=== PATIENT | male | born 1970 | race Caucasian/White ===

== ENCOUNTER 2020-08-02 05:09 | Inpatient (IN) | payer OTHER, SELFPAY ==
--- NOTE | ~2020-08-02 | XR_ITS ---
EXAMINATION: XR hip RT 2V w AP pelvis, XR femur RT min 2V DATE: 08/04/2020 15:57 INDICATION: Right hip pain and inability to bear weight TECHNIQUE: 1. Anteroposterior view of the pelvis and anteroposterior and frog-leg lateral views of the right hip were obtained. 2. AP and lateral views of the right femur were obtained on overlapping proximal and distal images. COMPARISON: None. FINDINGS: Mixed subchondral lucency and sclerosis underlying the cephalad aspect of the right femoral head whic h appears flattened and fragmented suggesting advanced osteonecrosis. There is severe secondary osteo arthritis with remodeling of the right acetabulum. Together this results in mild cephalad and lateral migration of the right femoral head within the right acetabulum. Normal alignment and joint spaces a t the right knee on nonweightbearing imaging. No other fractures. Left hip and bilateral sacral fract ures spaces are normal. No right knee joint effusion. IMPRESSION: 1. Severe osteoarthritis at the right hip likely secondary to advanced osteonecrosis with fragmentati on and flattening of the cephalad aspect of the right femoral head. Reviewed, dictated and finalized at location H. OLEUM ANALYST IMPRESSION: 1. Severe osteoarthritis at the right hip likely secondary to advanced osteonec rosis with fragmentation and flattening of the cephalad aspect of the right fem oral head.
[2020-08-02 05:10] VITALS: BP 155/76; PULSE 104; RESP 18; TEMP 36.4; O2SAT 95
[2020-08-02 06:47] LABS: Basophils Percent Auto 0.4 % (0.2-1.2); Eosinophils Absolute Auto 0.1 K/mm3 (0-0.3); Eosinophils Percent Auto 1.4 % (0-4.4); Hemoglobin 12.8 g/dL (14.0-18.0); Immature Granulocyte Absolute 0.04 K/mm3 (0.00-0.031); Immature Granulocyte Percent A 0.4 % (0-0.5); Lymphocytes Absolute Auto 2.48 K/mm3 (0.9-3.2); Lymphocytes Percent Auto 26.5 % (18.3-44.2); Mean Corpuscular HGB Conc 33.7 g/dl (32-36); Mean Corpuscular Volume 100.8 fl (80-100); Mean Platelet Volume 9.1 fl (7.4-10.4); Monocytes Absolute Auto 0.9 K/mm3 (0.1-0.6); Monocytes Percent Auto 9.9 % (2.6-8.5); Neutrophils Absolute Auto 5.8 K/mm3 (1.3-6.7); Neutrophils Percent Auto 61.4 % (45.5-73.1); Platelet Count Result 300 k/mm3 (150-375); Red Blood Count 3.77 M/mm3 (4.6-6.20); Red Cell Distribution Width 15.9 % (11.5-14.5); White Blood Count 9.4 K/mm3 (4.5-10.0)
[2020-08-02 07:00] LABS: Ethanol 117 mg/dL (<10)
[2020-08-02 07:13] LABS: Alanine Aminotransferase 62 U/L (4-50); Albumin Level 4.2 g/dL (3.5-5.1); Alkaline Phosphatase 66 U/L (38-126); Anion Gap 14 mmol/L (8-16); Aspartate Amino Transferase 72 U/L (17-59); Bilirubin,Total 0.4 mg/dL (0.2-1.3); Blood Urea Nitrogen 18 mg/dL (9-20); Calcium 8.4 mg/dL (8.4-10.2); Carbon Dioxide 23 mmol/L (22-30); Chloride 104 mmol/L (98-107); Estimated CRCL calculation 131 ml/min; Estimated Glomerular Filt Rate > 60; Glucose 96 mg/dL (75-110); Potassium 4.2 mmol/L (3.4-5.0); Sodium 141 mmol/L (137-145)
--- NOTE | 2020-08-02 07:21 | PC.NURSE ---
Assumed care of pt, pt is resting on stretcher, lights dimmed. Sitter at bedside.
--- NOTE | 2020-08-02 07:34 | ED.GENADULT ---
HPI - General Adult General Chief complaint: Psychiatric Symptoms <Ines Boland MD - Last Filed: 08/04/20 07:14> Stated complaint: suicidal ideation <Ines Boland MD - Last Filed: 08/04/20 07:14> Time Seen by Provider: 08/02/20 05:51 <Ines Boland MD - Last Filed: 08/04/20 07:14> Source: patient <Ines Boland MD - Last Filed: 08/04/20 07:14> History of Present Illness HPI narrative: Patient is a 49 y/o male brought in by EMS for suicidal thoughts. He states that he has been depressed and feeling suicidal for last 3 days. He considered overdose. There is no alleviating or exacerbating factor. He admits that he has been drinking frequently. He denies any pain. He feels well physically. <Ines Boland MD - Last Filed: 08/04/20 07:14> Related Data Home medications: Home Medications Medication Instructions Recorded Confirmed buspirone 30 mg PO TID 08/03/20 08/04/20 gabapentin 600 mg PO TID 08/03/20 08/04/20 naproxen 500 mg PO BID PRN 08/03/20 08/04/20 nicotine 21 mg TRANSDERMAL DAILY 08/03/20 08/04/20 trazodone 50 mg PO HS 08/03/20 08/04/20 bupropion HCl 150 mg PO QAM 08/04/20 08/04/20 carbamazepine 200 mg PO BID 08/04/20 08/04/20 chlorpromazine [Thorazine] 50 mg PO TID 08/04/20 08/04/20 folic acid 1 mg PO QAM 08/04/20 08/04/20 meloxicam 15 mg PO QAM 08/04/20 08/04/20 <Ines Boland MD - Last Filed: 08/04/20 07:14> Allergies/adverse reactions: Allergies Allergy/AdvReac Type Severity Reaction Status Date / Time latex Allergy Rash Verified 08/03/20 22:10 Penicillins Allergy Hives Verified 08/03/20 22:11 risperidone [From Risperdal] Allergy Other Verified 08/03/20 22:11 tramadol Allergy Headache Verified 08/03/20 22:10 <Ines Boland MD - Last Filed: 08/04/20 07:14> Review of Systems Constitutional: Constitutional: Denies chills, Denies fever(s), Denies headache(s) and Denies weakness <Ines Boland MD - Last Filed: 08/04/20 07:14> Eyes: Eyes: Denies blurry vision <Ines Boland MD - Last Filed: 08/04/20 07:14> ENT: Denies headache(s) and Denies neck pain <Ines Boland MD - Last Filed: 08/04/20 07:14> Cardiovascular: Cardiovascular: Denies chest pain and Denies dyspnea <Ines Boland MD - Last Filed: 08/04/20 07:14> Respiratory: Respiratory: Denies cough and Denies dyspnea <Ines Boland MD - Last Filed: 08/04/20 07:14> Gastrointestinal: Gastrointestinal: Denies abdominal pain, Denies diarrhea, Denies nausea and Denies vomiting <Ines Boland MD - Last Filed: 08/04/20 07:14> Genitourinary: Genitourinary: Denies hematuria and Denies dysuria <Ines Boland MD - Last Filed: 08/04/20 07:14> Musculoskeletal: Musculoskeletal: Denies back pain and Denies neck pain <Ines Boland MD - Last Filed: 08/04/20 07:14> Neurologic: Denies headache(s) and Denies weakness <Ines Boland MD - Last Filed: 08/04/20 07:14> Psychiatric: Psychiatric: Reports as per HPI, Reports depression and Reports suicidal ideation <Ines Boland MD - Last Filed: 08/04/20 07:14> PMFSH Past Medical History Medical History: Medical History Anxiety Depression Illicit drug use <Ines Boland MD - Last Filed: 08/04/20 07:14> Family History Family History: Family History Other Unknown family medical history <Ines Boland MD - Last Filed: 08/04/20 07:14> Social History Social History: Social History Smoking packs per day: 1 Smoking cigarettes per day: 20.0 Smoking status: Current every day smoker Tobacco type: cigarettes Alcohol intake: current Alcohol use details: 09/22 vodka daily Substance use: current Substance use type: marijuana, crack/cocaine and amphetamines Gender identity (if verbalized by the patient): Male Spiritual care concerns: No <Ines Boland MD - Last Filed: 08/04/20 07:14> Exam Const:
[2020-08-02 07:48] VITALS: BP 128/75; PULSE 97; RESP 14; TEMP 37.1; O2SAT 98
[2020-08-02 08:20] LABS: Add Urine Microscopic? YES; Appearance Urine Clear (Clear); Bacteria Urine Trace /hpf; Bilirubin Urine Negative (Negative); Blood Urine Negative (Negative); Color Urine Yellow (Yellow); Glucose Urine UA Negative (Negative); Ketones Urine Trace mg/dL (Negative); Leukocyte Esterase Ur Negative LEU/UL (Negative); Mucus Urine Rare /lpf; Nitrate Urine Negative (Negative); Protein Urine Negative (Negative); RBC Urine 0-2 /hpf (0-2); Specific Grav Ur 1.017 (1.001-1.035); Squamous Epithelial Cell Urine Occasional /hpf (Few); WBC Urine 0-3 /hpf
[2020-08-02 08:23] LABS: Acetaminophen < 10 ug/mL (10-30)
[2020-08-02 08:27] LABS: Amphetamine Screen Urine Negative (Negative); Barbiturate Screen Urine Negative (Negative); Benzodiazepines Screen Urine Positive (Negative); Cannabinoid Screen Urine Positive (Negative); Cocaine Screen Urine Positive (Negative); Methadone Screen Urine Negative (Negative); Opiate Screen Urine Negative (Negative); Phencyclidine Screen Urine Negative (Negative)
[2020-08-02 10:49] LABS: Ethanol < 10 mg/dL (<10)
--- NOTE | 2020-08-02 11:04 | ECG_ITS ---
Measurements Intervals [place] Rate: 103 P: 40 DE: 132 QRS: 54 QRSD: 89 T: 53 QT: 325 QTc: 427 Interpretive Statements SINUS TACHYCARDIA BORDERLINE ECG Electronically Signed On 08-02-2020 17:51:02 V [facility] [employer] by Yung Carranza D.O.
--- NOTE | 2020-08-02 11:04 | PC.NURSE ---
Crisis called and states they will come out when EKG is done
[2020-08-02 11:28] VITALS: BP 147/84; PULSE 117; RESP 17; TEMP 36.9; O2SAT 97
[2020-08-02 15:14] VITALS: BP 137/80; PULSE 101; RESP 15; O2SAT 99
[2020-08-02 19:03] VITALS: BP 132/83; PULSE 86; RESP 16; O2SAT 99
[2020-08-02 23:54] LABS: SARS-CoV-2 RNA PCR Negative
[2020-08-03 00:18] VITALS: BP 132/83; PULSE 82; RESP 18; O2SAT 96
[2020-08-03 05:37] VITALS: BP 96/60; PULSE 76; RESP 18; O2SAT 96
[2020-08-03 14:47] VITALS: BP 136/98; PULSE 107; RESP 18; O2SAT 99
[2020-08-03] MEDS: NICOTINE (*PBKC) 21 MG PATCH 1 PATCH TRANSDERM (14:49)
--- NOTE | 2020-08-03 15:37 | PC.NURSE ---
pt would like to continue home meds while at hospital but only knows name of a few home meds. will continue the meds he knows per md orders.
[2020-08-03] MEDS: GABAPENTIN 300 MG CAPSULE 600 MG PO (18:32)
[2020-08-03] MEDS: NAPROXEN 500 MG TABLET PO (18:32)
[2020-08-03 19:55] VITALS: BP 145/92; PULSE 103; RESP 18; TEMP 36.4; O2SAT 97
--- NOTE | 2020-08-03 20:38 | PC.NURSE ---
PT STATES THAT HE IS FEELING ANTSY , EDP DR. TREVINO MADE AWARE.
--- NOTE | 2020-08-03 21:35 | PM.IMHP ---
H&P: HPI History of Present Illness Date/Time: 08/03/20 21:35 Chief complaint: alcohol withdrawal, suicidal ideations Narrative: This is a morbidly obese 49-year-old male with known history of anxiety and depression who presented to the hospital with complaint of feeling depressed and suicidal for the past 3 days. The patient admits that he drinks a 5th of hard liquor every day. Two days ago he was drinking excessively and states he ended up in some people's house and was offered cocaine. He admits that he used cocaine with some strangers and this is not normal for him. The patient has been in the emergency room since yesterday morning and now began to exhibit symptoms of alcohol withdrawal. The patient complains of diaphoresis, anxiety, tremors, nausea, and headache. Currently he denies any hallucinations. On my encounter with the patient he admits that he is still having suicidal thoughts and his idea would be that he would intentionally overdose on all of his home medications. He also relates that he has a previous suicidal attempt when he consumed an entire bottle of acetaminophen with alcohol in the past. On my encounter with the patient he also mentions that lately he has been having wheezing and right-sided chest discomfort that is intermittent in nature. He denies any fevers or chills, diarrhea, dysuria, abdominal pain, hematuria, or rectal bleeding. The patient has verbalized his desire to quit drinking alcohol. Review of Systems Review of Systems: All systems reviewed & are unremarkable except as noted in HPI and below PMFSH Past Medical History Medical History Anxiety Depression Illicit drug use Family History Family History Other Unknown family medical history Social History Social History Smoking packs per day: 1 Smoking cigarettes per day: 20.0 Smoking status: Current every day smoker Tobacco type: cigarettes Alcohol intake: current Alcohol use details: 09/22 vodka daily Substance use: current Substance use type: marijuana, crack/cocaine and amphetamines Gender identity (if verbalized by the patient): Male Spiritual care concerns: No Comments Surgical history is reviewed and noncontributory. Meds Home Medications and Allergies Home Medications Medication Instructions Recorded Confirmed Type buspirone 30 mg PO TID 08/03/20 08/04/20 History gabapentin 600 mg PO TID 08/03/20 08/04/20 History naproxen 500 mg PO BID PRN 08/03/20 08/04/20 History nicotine 21 mg TRANSDERMAL DAILY 08/03/20 08/04/20 History trazodone 50 mg PO HS 08/03/20 08/04/20 History bupropion HCl 150 mg PO QAM 08/04/20 08/04/20 History carbamazepine 200 mg PO BID 08/04/20 08/04/20 History chlorpromazine [Thorazine] 50 mg PO TID 08/04/20 08/04/20 History folic acid 1 mg PO QAM 08/04/20 08/04/20 History meloxicam 15 mg PO QAM 08/04/20 08/04/20 History Allergies Allergy/AdvReac Type Severity Reaction Status Date / Time latex Allergy Rash Verified 08/03/20 22:10 Penicillins Allergy Hives Verified 08/03/20 22:11 risperidone [From Risperdal] Allergy Other Verified 08/03/20 22:11 tramadol Allergy Headache Verified 08/03/20 22:10 Vital Signs Vital Signs - 24 hr 08/03/20 00:18 08/03/20 05:37 08/03/20 14:47 Temperature Pulse Rate 82 76 107 H Respiratory Rate 18 18 18 Blood Pressure 132/83 96/60 L 136/98 H Pulse Oximetry 96 96 99 08/03/20 19:55 Temperature 36.4 C Pulse Rate 103 H Respiratory Rate 18 Blood Pressure 145/92 H Pulse Oximetry 97 Exam Const: General: cooperative, alert, awake, ill appearing, poor hygiene, tired appearing, uncomfortable and other (diaphoretic++ ) Nutritional Appearance: obese morbidly obese Orientation/consciousness: oriented to person HENMT: Head: normal to inspection General nose exam: Normal external nose present Fa
--- NOTE | 2020-08-03 21:39 | PC.NURSE ---
Now pt. to be admitted here; IMU bed per Dr. Sharpe, pt. status changed to ADMIT. No admission orders entered at this time.
[2020-08-03] MEDS: traZODone HCL 50 MG TABLET PO (21:57)
[2020-08-03] MEDS: LORazepam INJ (*CRX) 2 MG/ML VIAL IV PUSH (21:58)
[2020-08-03] MEDS: busPIRone HCL 10 MG TABLET PO (21:58)
[2020-08-03 22:30] VITALS: BP 139/85; PULSE 98; RESP 15; O2SAT 96
[2020-08-04] VITALS (18 sets, daily range): BP systolic 90–136; BP diastolic 57–85; PULSE 64–128; RESP 14–24; TEMP 36.1–36.5; O2SAT 94–100; BMI 37.9
[2020-08-04] MEDS: LORazepam INJ (*CRX) 2 MG/ML VIAL 1 MG IV PUSH (03:41)
[2020-08-04] MEDS: chlordiazePOXIDE (*CRX) 25 MG CAPSULE PO ×4 (03:41→21:09)
--- NOTE | 2020-08-04 05:09 | ADMGEN ---
This patient, Danny Juarez, was admitted to IMU Room 207-01. Patient/family oriented to hospital policies and general routines including ID bracelet, bed and alarms, visiting hours, pain management, procedures, bathroom and other care routines, personal items, smoking policy, room service/diet, and visiting hours. Information on how to activate the Rapid Response Team has been discussed. Patient/Family are encouraged to report perceived risks to care and to ask questions if they do not understand what they are told or what they should do.
[2020-08-04 05:21] LABS: Glucose Point of Care 100 (65-105)
[2020-08-04 06:35] LABS: Basophils Percent Auto 0.4 % (0.2-1.2); Eosinophils Absolute Auto 0.2 K/mm3 (0-0.3); Eosinophils Percent Auto 2.8 % (0-4.4); Hematocrit 38.7 % (42.0-52.0); Immature Granulocyte Absolute 0.02 K/mm3 (0.00-0.031); Immature Granulocyte Percent A 0.3 % (0-0.5); Lymphocytes Absolute Auto 2.87 K/mm3 (0.9-3.2); Lymphocytes Percent Auto 42.6 % (18.3-44.2); Mean Corpuscular HGB Conc 33.6 g/dl (32-36); Mean Corpuscular Hemoglobin 33.3 pg (26-34); Mean Corpuscular Volume 99.2 fl (80-100); Mean Platelet Volume 8.9 fl (7.4-10.4); Monocytes Absolute Auto 0.7 K/mm3 (0.1-0.6); Monocytes Percent Auto 10.1 % (2.6-8.5); Neutrophils Absolute Auto 2.9 K/mm3 (1.3-6.7); Neutrophils Percent Auto 43.8 % (45.5-73.1); Platelet Count Result 310 k/mm3 (150-375); Red Cell Distribution Width 15.1 % (11.5-14.5); White Blood Count 6.7 K/mm3 (4.5-10.0)
[2020-08-04 06:58] LABS: Anion Gap 4 mmol/L (8-16); Blood Urea Nitrogen 22 mg/dL (9-20); Calcium 8.4 mg/dL (8.4-10.2); Carbon Dioxide 31 mmol/L (22-30); Chloride 106 mmol/L (98-107); Estimated CRCL calculation 131 ml/min; Estimated Glomerular Filt Rate > 60; Glucose 115 mg/dL (75-110); Potassium 3.5 mmol/L (3.4-5.0); Sodium 141 mmol/L (137-145)
[2020-08-04] MEDS: THIAMINE HCL 200 MG/2 ML VIAL 100 MG IV PUSH (09:49)
[2020-08-04] MEDS: GABAPENTIN 300 MG CAPSULE 600 MG PO ×3 (09:49→18:07)
[2020-08-04] MEDS: chlorproMAZINE HCL 25 MG TABLET 50 MG PO ×3 (09:50→18:08)
[2020-08-04] MEDS: NAPROXEN 500 MG TABLET PO ×2 (09:50→18:08)
[2020-08-04] MEDS: NICOTINE (*PBKC) 21 MG PATCH 1 PATCH TRANSDERM (09:50)
[2020-08-04] MEDS: FOLIC ACID 1 MG TABLET PO (09:51)
[2020-08-04] MEDS: busPIRone HCL 10 MG TABLET PO ×2 (09:51→21:09)
--- NOTE | 2020-08-04 18:36 | PM.IMPN ---
Progress Note: A&P Assessment and Plan (1) Alcohol withdrawal: Qualifiers: Complication of substance-induced condition: with unspecified complication Qualified Code(s): F10.239 - Alcohol dependence with withdrawal, unspecified Code(s): F10.239 - Alcohol dependence with withdrawal, unspecified Status: Acute Assessment and Plan: [facility] protocol ongoing. Supportive care. (2) Suicidal ideation: Code(s): R45.851 - Suicidal ideations Status: Acute Assessment and Plan: Sitter at bedside. (3) Illicit drug use: Code(s): F19.90 - Other psychoactive substance use, unspecified, uncomplicated Status: Acute Assessment and Plan: Follow up with crisis intervention. (4) Anxiety: Code(s): F41.9 - Anxiety disorder, unspecified Status: Chronic Assessment and Plan: Stable (5) Depression: Qualifiers: Depression Type: unspecified Qualified Code(s): F32.9 - Major depressive disorder, single episode, unspecified Code(s): F32.9 - Major depressive disorder, single episode, unspecified Status: Chronic Assessment and Plan: Re started home meds Sitter at bedside Crisis intervention to eval for psych inpatient placement Subjective Date/time seen: 08/04/20 18:36 Review of Systems Review of Systems: Narrative: Patient presented to ED due to ETOH withdrawal. Patient is a poor historian, denies any issues currently was sleeping comfortable when entered the room. Was asking for pain medication stating that he has a shattered hip and femur Exam Narrative: Exam Narrative: In lying in bed. Const: General: cooperative, comfortable and other (Unkempt.) Nutritional Appearance: average body habitus Orientation/consciousness: oriented to person, oriented to place, oriented to time and patient oriented x3 Limitations: no limitations HENMT: Head: normal to inspection and normocephalic Ears: hearing grossly normal bilaterally General nose exam: Normal external nose present Face and sinus: normal facial exam Eyes: General: appearance normal, both eyes and all related structures Pupils: Equal, round and reactive pupils present EOM: EOMs intact bilaterally Neck: Neck: no lymphadenopathy and no JVD Resp: Effort & Inspection: normal respiratory effort Auscultation: clear to auscultation bilaterally Cardio: Jugular venous distension: no JVD Rate: regular rate Rhythm: regular rhythm GI: Inspection: normal to inspection GI Palp: Yes Soft to palpation and Yes No hepatosplenomegaly present Skin: General skin exam: normal color Lesions: no lesions Rashes: no rashes Trauma: no lacerations or abrasions Wounds: no wounds Neuro: General: patient oriented x3 and CN's II-XI intact bilaterally Cranial nerves: Yes CN's II-XII intact bilaterally and Yes Equal, round and reactive pupils present Cognition (Neuro): normal cognition Speech: normal speech Gait exam (Neuro): Normal gait present Motor exam (neuro): 5/5 motor strength present throughout Extrem: General: normal to inspection and no pedal edema Objective Data Vital Signs Vital Signs: Vital Signs - 24 hr 08/03/20 19:55 08/03/20 22:30 08/04/20 00:30 Temperature 97.6 F Pulse Rate 103 H 98 94 Pulse Rate [Bilateral Radial Palpation] Respiratory Rate 18 15 15 Blood Pressure 145/92 H 139/85 116/85 Pulse Oximetry 97 96 98 08/04/20 03:00 08/04/20 04:02 08/04/20 05:10 Temperature 97.7 F Pulse Rate 83 75 82 Pulse Rate [Bilateral Radial Palpation] Respiratory Rate 17 15 24 H Blood Pressure 100/71 90/57 L 128/72 Pulse Oximetry 94 95 98 08/04/20 05:21 08/04/20 06:00 08/04/20 07:18 Temperature 97 F L Pulse Rate 92 97 Pulse Rate [Bilateral Radial Palpation] 87 Respiratory Rate 24 H Blood Pressure 128/79 Pulse Oximetry 99 08/04/20 08:00 08/04/20 09:58 08/04/20 10:00 Temperature Pulse Rate 97 96 Pulse Rate [Bilateral Radial Palpation]
[2020-08-04 19:13] LABS: Glucose Point of Care 131 (65-105)
[2020-08-04] MEDS: oxyCODONE HCL (*CRX) 5 MG TAB IR PO (21:08)
[2020-08-04] MEDS: traZODone HCL 50 MG TABLET PO (21:09)
[2020-08-04 23:40] LABS: Glucose Point of Care 96 (65-105)
[2020-08-05] VITALS (7 sets, daily range): BP systolic 104–128; BP diastolic 61–73; PULSE 77–105; RESP 16–22; TEMP 36–36.6; O2SAT 97–98
[2020-08-05] MEDS: chlordiazePOXIDE (*CRX) 25 MG CAPSULE PO ×3 (03:44→16:36)
[2020-08-05] MEDS: oxyCODONE HCL (*CRX) 5 MG TAB IR PO ×2 (08:33→16:36)
[2020-08-05] MEDS: GABAPENTIN 300 MG CAPSULE 600 MG PO ×3 (08:34→16:37)
[2020-08-05] MEDS: THIAMINE HCL 200 MG/2 ML VIAL 100 MG IV PUSH (08:34)
[2020-08-05] MEDS: NICOTINE (*PBKC) 21 MG PATCH 1 PATCH TRANSDERM (08:34)
[2020-08-05] MEDS: FOLIC ACID 1 MG TABLET PO (08:35)
[2020-08-05] MEDS: chlorproMAZINE HCL 25 MG TABLET 50 MG PO ×3 (08:35→16:37)
[2020-08-05] MEDS: NAPROXEN 500 MG TABLET PO ×2 (08:35→16:37)
[2020-08-05] MEDS: busPIRone HCL 10 MG TABLET PO (08:35)
[2020-08-05 09:00] LABS: Basophils Absolute Auto 0.1 K/mm3 (0.0-0.1); Basophils Percent Auto 0.9 % (0.2-1.2); Eosinophils Absolute Auto 0.2 K/mm3 (0-0.3); Eosinophils Percent Auto 3.7 % (0-4.4); Hematocrit 39.9 % (42.0-52.0); Hemoglobin 13.4 g/dL (14.0-18.0); Immature Granulocyte Absolute 0.02 K/mm3 (0.00-0.031); Immature Granulocyte Percent A 0.3 % (0-0.5); Lymphocytes Percent Auto 43.1 % (18.3-44.2); Mean Corpuscular HGB Conc 33.6 g/dl (32-36); Mean Corpuscular Hemoglobin 33.8 pg (26-34); Mean Corpuscular Volume 100.8 fl (80-100); Mean Platelet Volume 9.1 fl (7.4-10.4); Monocytes Absolute Auto 0.7 K/mm3 (0.1-0.6); Monocytes Percent Auto 10.5 % (2.6-8.5); Neutrophils Absolute Auto 2.7 K/mm3 (1.3-6.7); Neutrophils Percent Auto 41.5 % (45.5-73.1); Platelet Count Result 300 k/mm3 (150-375); Red Blood Count 3.96 M/mm3 (4.6-6.20); Red Cell Distribution Width 14.9 % (11.5-14.5); White Blood Count 6.5 K/mm3 (4.5-10.0)
[2020-08-05 09:12] LABS: Anion Gap 6 mmol/L (8-16); Blood Urea Nitrogen 18 mg/dL (9-20); Calcium 8.7 mg/dL (8.4-10.2); Carbon Dioxide 26 mmol/L (22-30); Chloride 108 mmol/L (98-107); Estimated CRCL calculation 146 ml/min; Estimated Glomerular Filt Rate > 60; Glucose 95 mg/dL (75-110); Potassium 3.8 mmol/L (3.4-5.0); Sodium 140 mmol/L (137-145)
--- NOTE | 2020-08-05 11:53 | PM.IMPN ---
Subjective Date/time seen: 08/05/20 11:53 Objective Data Vital Signs Vital Signs: Vital Signs - 24 hr 08/04/20 12:00 08/04/20 14:00 08/04/20 16:00 Temperature 97.4 F L Pulse Rate 89 97 92 Pulse Rate [Bilateral Radial Palpation] 108 H 92 Respiratory Rate 14 16 Blood Pressure 110/64 Pulse Oximetry 99 94 08/04/20 16:53 08/04/20 18:00 08/04/20 20:00 Temperature 97.4 F L 97.0 F L Pulse Rate 92 128 H 105 H Pulse Rate [Bilateral Radial Palpation] 105 H Respiratory Rate 16 18 Blood Pressure 118/69 136/70 Pulse Oximetry 94 98 08/04/20 21:53 08/04/20 23:53 08/05/20 00:00 Temperature 96.9 F L Pulse Rate 101 H 94 101 H Pulse Rate [Bilateral Radial Palpation] 101 H Respiratory Rate 20 Blood Pressure 110/74 Pulse Oximetry 100 08/05/20 02:00 08/05/20 04:00 08/05/20 06:00 Temperature 97.1 F L Pulse Rate 85 77 88 Pulse Rate [Bilateral Radial Palpation] 86 Respiratory Rate 22 H Blood Pressure 124/62 Pulse Oximetry 98 08/05/20 08:00 08/05/20 10:00 Temperature 96.8 F L Pulse Rate 78 86 Pulse Rate [Bilateral Radial Palpation] Respiratory Rate 16 Blood Pressure 104/61 Pulse Oximetry 97 Intake/Output Intake/Output: Intake & Output 08/02/20 08/03/20 08/04/20 08/05/20 23:59 23:59 23:59 23:59 Intake Total 1192 Output Total 900 Balance 1192 -900 Meds/Results Medications: Active Medications Generic Name Dose Route Start Last Admin Trade Name Freq PRN Reason Stop Dose Admin Buspirone HCl 10 mg 08/04/20 09:00 08/05/20 08:35 Buspirone Hcl 10 Mg Tablet PO 10 mg Q12HR ASHLEY Administration Chlordiazepoxide HCl 25 mg 08/03/20 22:10 08/05/20 10:50 Chlordiazepoxide (*Crx) 25 Mg Capsule PO 25 mg Q6H ASHLEY Administration Chlorpromazine HCl 50 mg 08/04/20 09:00 08/05/20 08:35 Chlorpromazine Hcl 25 Mg Tablet PO 09/03/20 09:01 50 mg TID ASHLEY Administration Folic Acid 1 mg 08/04/20 09:00 08/05/20 08:35 Folic Acid 1 Mg Tablet PO 1 mg QAM ASHLEY Administration Gabapentin 600 mg 08/04/20 09:00 08/05/20 08:34 Gabapentin 300 Mg Capsule PO 600 mg TID ASHLEY Administration Lorazepam 1 mg 08/03/20 22:06 08/04/20 03:41 Lorazepam Inj (*Crx) 2 Mg/Ml Vial IV PUSH 1 mg Q4H PRN Administration Withdrawal Naproxen 500 mg 08/04/20 08:00 08/05/20 08:35 Naproxen 500 Mg Tablet PO 500 mg BIDWM ASHLEY Administration Nicotine 1 patch 08/04/20 09:00 08/05/20 08:34 Nicotine (*Pbkc) 21 Mg Patch TRANSDERM 1 patch QAM ASHLEY Administration Oxycodone HCl 5 mg 08/04/20 18:55 08/05/20 08:33 Oxycodone Hcl (*Crx) 5 Mg Tab Ir PO 5 mg Q8H PRN Administration Pain Rated 7-10 Thiamine HCl 100 mg 08/04/20 09:00 08/05/20 08:34 Thiamine Hcl 200 Mg/2 Ml Vial IV PUSH 100 mg DAILY ASHLEY Administration Tramadol HCl 50 mg 08/04/20 15:23 Tramadol Hcl (*Crx) 50 Mg Tablet PO Q6H PRN Pain Rated 4-6 Trazodone HCl 50 mg 08/04/20 21:00 08/04/20 21:09 Trazodone Hcl 50 Mg Tablet PO 50 mg HS ASHLEY Administration Radiology Results: ITS Impressions Femur X-Ray 08/04/20 16:10 IMPRESSION: 1. Severe osteoarthritis at the right hip likely secondary to advanced osteonecrosis with fragmentation and flattening of the cephalad aspect of the right femoral head. Hip/Pelvis X-Ray 08/04/20 16:10 IMPRESSION: 1. Severe osteoarthritis at the right hip likely secondary to advanced osteonecrosis with fragmentation and flattening of the cephalad aspect of the right femoral head. Labs Labs: Laboratory Results - last 24 hr 08/04/20 08/04/20 08/05/20 19:11 23:37 08:49 WBC 6.5 RBC 3.96 L Hgb 13.4 L Hct 39.9 L MCV 100.8 H MCH 33.8 MCHC 33.6 RDW 14.9 H Plt Count 300 MPV 9.1 Immature Gran % (Auto) 0.3 Neut % (Auto) 41.5 L Lymph % (Auto) 43.1 [place] % (Auto) 10.5 H Eos % (Auto) 3.7 Baso % (Auto) 0.9 Lymph # (Auto) 2.80 Mo
--- NOTE | 2020-08-05 13:11 | PM.DS ---
DS: Admitting Diagnosis Admitting Diagnosis Admitting Diagnosis: alcohol withdrawal, suicidal ideations. DS: Discharge Diagnosis Discharge Diagnosis (1) Depression: Qualifiers: Depression Type: unspecified Qualified Code(s): F32.9 - Major depressive disorder, single episode, unspecified Code(s): F32.9 - Major depressive disorder, single episode, unspecified Status: Chronic Assessment and Plan: Continue home meds Medically cleared for transfer to Psych facility. (2) Anxiety: Code(s): F41.9 - Anxiety disorder, unspecified Status: Chronic Assessment and Plan: Continue home meds. (3) Illicit drug use: Code(s): F19.90 - Other psychoactive substance use, unspecified, uncomplicated Status: Acute Assessment and Plan: Follow up in the outpatient setting. (4) Suicidal ideation: Code(s): R45.851 - Suicidal ideations Status: Acute Assessment and Plan: Going to Psych facility. (5) Alcohol withdrawal: Qualifiers: Complication of substance-induced condition: with unspecified complication Qualified Code(s): F10.239 - Alcohol dependence with withdrawal, unspecified Code(s): F10.239 - Alcohol dependence with withdrawal, unspecified Status: Acute Assessment and Plan: Resolved. Medically cleared to go to Psych facility. DS: Summary Time Spent with Patient Time attestation: Total time spent providing and/or coordinating discharge services: Exam Narrative: Exam Narrative: In bed sitting. Const: General: cooperative, comfortable, no acute distress, alert, awake, Physically active and other (Unkempt.) Nutritional Appearance: average body habitus Orientation/consciousness: oriented to person, oriented to place, oriented to time and patient oriented x3 Limitations: no limitations and behavioral limitations Other: Depression. HENMT: Head: normal to inspection and normocephalic Ears: hearing grossly normal bilaterally General nose exam: Normal external nose present Face and sinus: normal facial exam Mouth: Yes Normal oral and palatal mucosa present Eyes: General: appearance normal, both eyes and all related structures Pupils: Equal, round and reactive pupils present EOM: EOMs intact bilaterally Neck: Neck: normal visual inspection, full ROM, no lymphadenopathy and no JVD Resp: Effort & Inspection: normal respiratory effort Auscultation: clear to auscultation bilaterally Cardio: Jugular venous distension: no JVD Rate: regular rate Rhythm: regular rhythm GI: Inspection: normal to inspection GI Palp: Yes Soft to palpation and Yes No hepatosplenomegaly present Skin: General skin exam: normal color Lesions: no lesions Rashes: no rashes Trauma: no lacerations or abrasions Wounds: no wounds Neuro: General: patient oriented x3 and CN's II-XI intact bilaterally Cranial nerves: Yes CN's II-XII intact bilaterally and Yes Equal, round and reactive pupils present Cognition (Neuro): normal cognition Speech: normal speech Gait exam (Neuro): Normal gait present Motor exam (neuro): 5/5 motor strength present throughout Sensory Exam: normal sensation Extrem: General: normal to inspection and no pedal edema DS: Data Data Completed and Pending Labs on day of discharge: Labs from last 24 hours 08/05/20 08/05/20 08/04/20 08:49 08:49 23:37 WBC 6.5 RBC 3.96 L Hgb 13.4 L Hct 39.9 L MCV 100.8 H MCH 33.8 MCHC 33.6 RDW 14.9 H Plt Count 300 MPV 9.1 Immature Gran % (Auto) 0.3 Neut % (Auto) 41.5 L Lymph % (Auto) 43.1 [place] % (Auto) 10.5 H Eos % (Auto) 3.7 Baso % (Auto) 0.9 Lymph # (Auto) 2.80 [place] # (Auto) 0.7 H Eos # (Auto) 0.2 Baso # (Auto) 0.1 Abs Immat Gran (auto) 0.02 Absolute Neuts (auto) 2.7 Absolute Nucleated RBC 0.0 Nucleated RBC % 0.0 Sodium 140 Potassium 3.8 Chloride 108 H Carbon Dioxide 26 Anion Gap 6 L
== END 2020-08-05 18:55 | DRG 775 ==
LOC: ANHED 08-03 21:17 → ANHIMU 08-04 04:33
PROVIDERS: Emergency Medicine; General Practice; Admitting Provider Family Medicine; Emergency Provider Emergency Medicine; PCP Nurse Practitioner; Visit Provider Internal Medicine
DX: F10.239 Alcohol dependence with withdrawal, unspecified (principal); Z20.828 Contact with and (suspected) exposure to other viral communicable diseases; R45.851 Suicidal ideations; F19.90 Other psychoactive substance use, unspecified, uncomplicated; F41.9 Anxiety disorder, unspecified; F32.9 Major depressive disorder, single episode, unspecified; F17.210 Nicotine dependence, cigarettes, uncomplicated; Z28.21 Immunization not carried out because of patient refusal; Z79.899 Other long term (current) drug therapy
CPT/HCPCS: 36415; 73502; 73552; 80048; 80053; 80307; 81001; 83735; 84443; 85025; 87635; 93005; 96374; 96375; 99285; A9270; C9803; G0378; G0379; J2060; J3411; U0003

== ENCOUNTER 2021-01-05 02:04 | Emergency (ER) | payer OTHER, SELFPAY ==
--- NOTE | 2021-01-05 02:17 | ECG_ITS ---
Measurements Intervals [place] Rate: 100 P: 57 MS: 133 QRS: 58 QRSD: 92 T: 32 QT: 338 QTc: 437 Interpretive Statements SINUS TACHYCARDIA DELAYED PRECORDIAL R/S TRANSITION BASELINE ARTIFACT- I, II, III ABNORMAL ECG Electronically Signed On 01-05-2021 7:19:28 CDT by Yung Carranza D.O.
[2021-01-05 02:18] VITALS: BP 144/90; PULSE 104; RESP 20; TEMP 36.8; O2SAT 100
--- NOTE | 2021-01-05 02:18 | ED.PSYCH ---
HPI - Psych General Chief Complaint: Psychiatric Symptoms <Stephany Toney MD - Last Filed: 01/05/21 08:00> Stated Complaint: si <Stephany Toney MD - Last Filed: 01/05/21 08:00> Time Seen by Provider: 01/05/21 02:06 <Stephany Toney MD - Last Filed: 01/05/21 08:00> Source: patient <Stephany Toney MD - Last Filed: 01/05/21 08:00> Mode of arrival: EMS <Stephany Toney MD - Last Filed: 01/05/21 08:00> Limitations: no limitations <Stephany Toney MD - Last Filed: 01/05/21 08:00> History of Present Illness HPI Narrative: This is homeless 50 year old male with history Bipolar depression, alcohol and drug abuse who presents for evaluation of suicidal ideations. EMS states patient was evaluated at [facility] yesterday and he did not meet criteria for inpatient psychiatric treatment. He called 911 from across the [address] from the hospital 30 minutes after discharge, and he was brought to [facility]. Patient states he has been dealing with depression for 30 years. He reports suicidal ideations for several months, and it has been exacerbated by his breakup of his girlfriend 4 months ago. He reports he has suicidal ideations of overdosing of tylenol for 1 week but he has not taken any medications to overdose. He admits to taking methamphetamine and drinking alcohol prior to his evaluated at [facility]. He denies taking drugs or alcohol since discharge. <Stephany Toney MD - Last Filed: 01/05/21 08:00> Related Data Home Medications: Home Medications Medication Instructions Recorded Confirmed buspirone 30 mg PO TID 08/03/20 08/04/20 gabapentin 600 mg PO TID 08/03/20 08/04/20 naproxen 500 mg PO BID PRN 08/03/20 08/04/20 nicotine 21 mg TRANSDERMAL DAILY 08/03/20 08/04/20 trazodone 50 mg PO HS 08/03/20 08/04/20 bupropion HCl 150 mg PO QAM 08/04/20 08/04/20 carbamazepine 200 mg PO BID 08/04/20 08/04/20 chlorpromazine 50 mg PO TID 08/04/20 08/04/20 folic acid 1 mg PO QAM 08/04/20 08/04/20 meloxicam 15 mg PO QAM 08/04/20 08/04/20 <Stephany Toney MD - Last Filed: 01/05/21 08:00> Allergies/Adverse Reactions: Allergies Allergy/AdvReac Type Severity Reaction Status Date / Time latex Allergy Rash Verified 08/03/20 22:10 Penicillins Allergy Hives Verified 08/03/20 22:11 risperidone [From Risperdal] Allergy Other Verified 08/03/20 22:11 tramadol AdvReac Headache Verified 08/04/20 17:37 <Stephany Toney MD - Last Filed: 01/05/21 08:00> Review of Systems Review of Systems: All systems reviewed & are unremarkable except as noted in HPI and below <Stephany Toney MD - Last Filed: 01/05/21 08:00> PMFSH Past Medical History Medical History: Medical History Anxiety Depression Illicit drug use <Stephany Toney MD - Last Filed: 01/05/21 08:00> Surgical History Surgical History: Surgical History (Updated 01/05/21 @ 02:22 by Stephany Toney MD) Hx of appendectomy Hx of tonsillectomy <Stephany Toney MD - Last Filed: 01/05/21 08:00> Family History Family History: Family History Other Unknown family medical history <Stephany Toney MD - Last Filed: 01/05/21 08:00> Social History Social History: Social History Smoking packs per day: 1 Smoking cigarettes per day: 20.0 Smoking status: Current every day smoker Tobacco type: cigarettes Alcohol intake: current Substance use: current Substance use type: unknown Gender identity (if verbalized by the patient): Male Spiritual care concerns: No <Stephany Toney MD - Last Filed: 01/05/21 08:00> Exam Const: General: no acute distress and alert <Stephany Toney MD - Last Filed: 01/05/21 08:00> Orientation/consciousness: patient oriented x3 <Stephany Toney MD - Last Filed: 01/05/21 08:00> Resp: Effort & Inspection: normal respiratory effort
[2021-01-05 02:58] LABS: Basophils Percent Auto 0.2 % (0.2-1.2); Eosinophils Absolute Auto 0.2 K/mm3 (0-0.3); Eosinophils Percent Auto 2.8 % (0-4.4); Hematocrit 36.1 % (42.0-52.0); Hemoglobin 12.5 g/dL (14.0-18.0); Immature Granulocyte Absolute 0.04 K/mm3 (0.00-0.031); Immature Granulocyte Percent A 0.5 % (0-0.5); Lymphocytes Absolute Auto 2.57 K/mm3 (0.9-3.2); Lymphocytes Percent Auto 29.7 % (18.3-44.2); Mean Corpuscular HGB Conc 34.6 g/dl (32-36); Mean Corpuscular Volume 95.3 fl (80-100); Mean Platelet Volume 8.8 fl (7.4-10.4); Monocytes Percent Auto 11.2 % (2.6-8.5); Neutrophils Absolute Auto 4.8 K/mm3 (1.3-6.7); Neutrophils Percent Auto 55.6 % (45.5-73.1); Platelet Count Result 254 k/mm3 (150-375); Red Blood Count 3.79 M/mm3 (4.6-6.20); Red Cell Distribution Width 13.1 % (11.5-14.5); White Blood Count 8.6 K/mm3 (4.5-10.0)
[2021-01-05 03:06] LABS: Alanine Aminotransferase 99 U/L (4-50); Albumin Level 4.1 g/dL (3.5-5.1); Alkaline Phosphatase 76 U/L (38-126); Anion Gap 9 mmol/L (8-16); Aspartate Amino Transferase 107 U/L (17-59); Bilirubin,Total 0.7 mg/dL (0.2-1.3); Blood Urea Nitrogen 14 mg/dL (9-20); Calcium 8.8 mg/dL (8.4-10.2); Carbon Dioxide 24 mmol/L (22-30); Chloride 105 mmol/L (98-107); Estimated CRCL calculation 127 ml/min; Estimated Glomerular Filt Rate > 60; Glucose 99 mg/dL (75-110); Potassium 3.6 mmol/L (3.4-5.0); Sodium 138 mmol/L (137-145)
[2021-01-05 03:24] LABS: Acetaminophen < 10 ug/mL (10-30); Ethanol < 10 mg/dL (<10); Salicylate < 1.0 mg/dL (2-20)
[2021-01-05 03:46] LABS: Add Urine Microscopic? YES; Appearance Urine Cloudy (Clear); Bilirubin Urine 1+ (Negative); Blood Urine Negative (Negative); Color Urine Amber (Yellow); Glucose Urine UA Negative (Negative); Ketones Urine Trace mg/dL (Negative); Leukocyte Esterase Ur Trace LEU/UL (Negative); Mucus Urine Heavy /lpf; Nitrate Urine Negative (Negative); Protein Urine 2+ mg/dL (Negative); RBC Urine 0-2 /hpf (0-2); Squamous Epithelial Cell Urine Rare /hpf (Few)
[2021-01-05 03:49] LABS: Specific Grav Ur 1.031 (1.001-1.035)
[2021-01-05 04:11] LABS: Barbiturate Screen Urine Negative (Negative); Benzodiazepines Screen Urine Positive (Negative)
[2021-01-05 04:15] LABS: Cannabinoid Screen Urine Positive (Negative); Cocaine Screen Urine Negative (Negative); Methadone Screen Urine Negative (Negative); Opiate Screen Urine Negative (Negative); Phencyclidine Screen Urine Negative (Negative)
--- NOTE | 2021-01-05 07:17 | PC.NURSE ---
1:1 sitter at bedside, pt asleep on cart, non-labored respirations. Breakfast tray ordered w/suicidal precautions.
--- NOTE | 2021-01-05 08:35 | PC.NURSE ---
0820 Pt ambulatory steady gait to BR. 3hr trop drawn and sent to lab
--- NOTE | 2021-01-05 09:01 | PC.NURSE ---
0850 Covid PCR swab collected and sent to lab. Pt awake, calm and cooperative, states he called EMS I was depressed and suicidal, I felt like that before
--- NOTE | 2021-01-05 11:45 | PC.NURSE ---
Addendum entered by Stcaey Chan RN 01/05/21 12:05: 1:1 sitter at bedside. Pt asleep, arousable, non-labored respirations Original Note: Per lab covid batch is not running yet, anticipate results done at [address] [facility], social work aware
--- NOTE | 2021-01-05 13:30 | PC.NURSE ---
Per high school social studies teacher patient's packet sent to: Lynn harley [facility] fax [phone] [facility] fax [phone] [facility] fax [phone]
--- NOTE | 2021-01-05 15:07 | PC.NURSE ---
Per [facility] they are unable to accept as they do not have a bed available
--- NOTE | 2021-01-05 17:36 | PC.NURSE ---
Pt in [place] using telephone speaking with Zahida from [facility] ([phone]) per her request. Pt ambulates steady using his crutches. Bed linens changed
--- NOTE | 2021-01-05 18:05 | PC.NURSE ---
Per Zahida at [facility] unable to accept psychiatrist is unable to meet his needs
[2021-01-05 20:31] LABS: SARS-CoV-2 RNA PCR Negative
[2021-01-05 21:37] VITALS: BP 136/80; PULSE 88; RESP 18; TEMP 36.5; O2SAT 97
--- NOTE | 2021-01-05 21:39 | PC.NURSE ---
[facility] in [place] called by this RN to update them on COVID results NEGATIVE. Facility reports pt denied admission at this time. Crisis nondestructive tester present in ED at this time.
--- NOTE | 2021-01-05 21:49 | PC.NURSE ---
called [facility] to update them on pt's NEGATIVE covid results. this RN awaiting acceptance/denial.
--- NOTE | 2021-01-05 21:51 | PC.NURSE ---
Pt denied acceptance at [facility] and [facility]. This RN also called [facility] and spoke to Eric in intake, who reports no record of pt. will update crisis him specialist present in ed.
--- NOTE | 2021-01-06 01:00 | PC.NURSE ---
This RN called [facility] to
--- NOTE | 2021-01-06 01:54 | PC.NURSE ---
This RN spoke with roseann Garza at [facility] in [place]. requesting chart faxed to them at [phone]. Will need negative covid test result prior to acceptance, but does report multiple AM discharges expected at their facility. will f/u in AM/pass on in report.
--- NOTE | 2021-01-06 01:56 | PC.NURSE ---
This RN called [facility] to update med rec. [facility]HS error at present; unable to update list in [facility].
--- NOTE | 2021-01-06 04:15 | PC.NURSE ---
Meds tubed back to pharmacy by this RN. changed order - meds non administered.
--- NOTE | 2021-01-06 06:05 | PC.NURSE ---
At present time, no pending acceptance for placement. Pt denied acceptance to [facility].
--- NOTE | 2021-01-06 06:10 | PC.NURSE ---
Report to PETER Faye
[2021-01-06 07:31] VITALS: BP 131/84; PULSE 86; RESP 14; TEMP 36.9; O2SAT 98
--- NOTE | 2021-01-06 11:22 | PC.NURSE ---
Report given to Loida GREEN
[2021-01-06 17:11] VITALS: BP 122/84; PULSE 85; RESP 12; TEMP 36.7; O2SAT 98
--- NOTE | 2021-01-06 17:57 | PC.NURSE ---
Spoke with [facility] she wants us to fax patients chart to [facility] and [facility]. RN heard back from [facility] who asked for additional information be faxed to them which was completed. Have not heard back from any other facility today.
--- NOTE | 2021-01-06 19:19 | PC.NURSE ---
Addendum entered by Natalia Benites RN 01/06/21 19:21: Pt states If I don't get my meds I'm gonna sign myself out and OD. Sitter at bedside. Direct observation continues. Original Note: Pt resting on stretcher c eyes closed. resps even/nonlabored. pt requesting home meds. explained to pt process in ED. Verbalized understanding.
--- NOTE | 2021-01-06 20:05 | PC.NURSE ---
[facility] declined pt admission. Charge nurse notified. Pt's repeat CIWA 4.
--- NOTE | 2021-01-06 20:49 | PC.NURSE ---
Spoke to Fide at Crisis, they are waiting to hear back from a couple of places. If he is not accepted tomorrow, they will be out to possible reevaluate and make him involuntary to be able to look at involuntary places. They will also call back tonight and let us know if they have heard from a couple other places.
[2021-01-06] MEDS: ONDANSETRON HCL ODT 4 MG TABLET PO (21:14)
[2021-01-06] MEDS: GABAPENTIN 300 MG CAPSULE 600 MG PO (21:14)
[2021-01-06 21:42] VITALS: BP 140/80; PULSE 99; RESP 18; TEMP 36.3; O2SAT 97
--- NOTE | 2021-01-07 00:57 | PC.NURSE ---
Per Gena at [facility], they are awaiting on possible acceptance from a facility called [facility]. If they decline pt, next option is to make pt involuntary for placement upon re-evaluation in the am. All other facilities declined to accept pt at this time.
--- NOTE | 2021-01-07 03:24 | PC.NURSE ---
Pt requested something to help me relax . ED MD notified.
[2021-01-07] MEDS: hydrOXYzine HCL 25 MG TABLET 50 MG PO (03:31)
[2021-01-07 07:45] VITALS: BP 107/65; PULSE 78; RESP 18; TEMP 37.2; O2SAT 96
--- NOTE | 2021-01-07 10:41 | PC.NURSE ---
Paperwork faxed to facilities per Crisis at this time.
--- NOTE | 2021-01-07 15:26 | PC.NURSE ---
requested paperwork faxed to [facility] and [facility]
[2021-01-07 15:47] VITALS: BP 122/78; PULSE 78; RESP 18; O2SAT 99
--- NOTE | 2021-01-07 19:27 | PC.NURSE ---
spoke with chidi vegetable farmworker who states that she will not come out to reevaluate and that she is continuing to seek placement
[2021-01-08 07:36] VITALS: BP 148/83; PULSE 66; RESP 16; TEMP 37.2; O2SAT 99
--- NOTE | 2021-01-08 07:37 | PC.NURSE ---
Assumed care. Sleeping. Sitter at bedside.
[2021-01-08 09:27] LABS: Basophils Percent Auto 0.5 % (0.2-1.2); Eosinophils Absolute Auto 0.3 K/mm3 (0-0.3); Eosinophils Percent Auto 3.7 % (0-4.4); Hematocrit 44.6 % (42.0-52.0); Immature Granulocyte Absolute 0.03 K/mm3 (0.00-0.031); Immature Granulocyte Percent A 0.3 % (0-0.5); Lymphocytes Absolute Auto 2.79 K/mm3 (0.9-3.2); Lymphocytes Percent Auto 31.6 % (18.3-44.2); Mean Corpuscular HGB Conc 33.6 g/dl (32-36); Mean Corpuscular Hemoglobin 33.1 pg (26-34); Mean Corpuscular Volume 98.5 fl (80-100); Monocytes Absolute Auto 0.7 K/mm3 (0.1-0.6); Monocytes Percent Auto 7.6 % (2.6-8.5); Neutrophils Percent Auto 56.3 % (45.5-73.1); Platelet Count Result 329 k/mm3 (150-375); Red Blood Count 4.53 M/mm3 (4.6-6.20); White Blood Count 8.8 K/mm3 (4.5-10.0)
[2021-01-08 09:44] LABS: Alanine Aminotransferase 86 U/L (4-50); Albumin Level 4.5 g/dL (3.5-5.1); Alkaline Phosphatase 74 U/L (38-126); Anion Gap 7 mmol/L (8-16); Aspartate Amino Transferase 58 U/L (17-59); Bilirubin,Total 0.3 mg/dL (0.2-1.3); Blood Urea Nitrogen 16 mg/dL (9-20); Calcium 9.2 mg/dL (8.4-10.2); Carbon Dioxide 27 mmol/L (22-30); Chloride 108 mmol/L (98-107); Estimated CRCL calculation 127 ml/min; Estimated Glomerular Filt Rate > 60; Glucose 127 mg/dL (75-110); Magnesium 2.1 mg/dL (1.6-2.3); Potassium 4.2 mmol/L (3.4-5.0); Sodium 142 mmol/L (137-145)
[2021-01-08 09:51] LABS: Amphetamine Screen Urine Positive (Negative); Barbiturate Screen Urine Negative (Negative); Benzodiazepines Screen Urine Negative (Negative); Cannabinoid Screen Urine Positive (Negative); Cocaine Screen Urine Negative (Negative); Methadone Screen Urine Negative (Negative); Opiate Screen Urine Negative (Negative); Phencyclidine Screen Urine Negative (Negative)
[2021-01-08 09:55] LABS: Add Urine Microscopic? YES; Appearance Urine Cloudy (Clear); Bacteria Urine Trace /hpf; Bilirubin Urine Negative (Negative); Blood Urine Negative (Negative); Color Urine Yellow (Yellow); Glucose Urine UA Negative (Negative); Ketones Urine Negative (Negative); Leukocyte Esterase Ur Trace LEU/UL (Negative); Mucus Urine Heavy /lpf; Nitrate Urine Negative (Negative); Protein Urine 1+ mg/dL (Negative); RBC Urine 0-2 /hpf (0-2); Squamous Epithelial Cell Urine Occasional /hpf (Few); WBC Urine 16-20 /hpf
[2021-01-08 10:40] LABS: Ethanol < 10 mg/dL (<10)
--- NOTE | 2021-01-08 11:57 | PC.NURSE ---
Chart faxed to [facility].
--- NOTE | 2021-01-08 13:09 | PC.NURSE ---
[facility] returned call and are unable to accept pt due to insurance.
--- NOTE | 2021-01-08 13:56 | PC.NURSE ---
[facility] called and are unable to take pt due to his need for crutches and ortho follow up.
--- NOTE | 2021-01-08 14:11 | PC.NURSE ---
received call from [facility], they state they need a petition for involuntary admission. When telling staff that pt is voluntary they stated they do not take voluntary transfers.
--- NOTE | 2021-01-08 14:48 | PC.NURSE ---
Additional information and petition faxed to [facility].
--- NOTE | 2021-01-08 15:32 | PC.NURSE ---
[facility] called and states that they need chart refaxed
--- NOTE | 2021-01-08 15:38 | PC.NURSE ---
Chart refaxed to [facility].
--- NOTE | 2021-01-08 16:52 | PC.NURSE ---
Crisis reassessed pt and pt agreed to safety contract. ERP aware.
[2021-01-08 21:02] LABS: SARS-CoV-2 RNA PCR Negative
== END 2021-01-08 17:21 | disposition home or self-care (01) ==
PROVIDERS: Emergency Medicine; General Practice; Emergency Provider Emergency Medicine; PCP Nurse Practitioner
DX: F32.9 Major depressive disorder, single episode, unspecified (principal); Z20.822 Contact with and (suspected) exposure to COVID-19; F41.9 Anxiety disorder, unspecified; F17.210 Nicotine dependence, cigarettes, uncomplicated
CPT/HCPCS: 36415; 80053; 80307; 81001; 83735; 84443; 85025; 87086; 87088; 93005; 99284; A9270; C9803; U0003; U0005

== ENCOUNTER 2021-01-08 23:42 | Emergency (ER) | payer OTHER, SELFPAY ==
[2021-01-08 23:55] VITALS: BP 105/69; PULSE 110; RESP 22; TEMP 37.1; O2SAT 100
--- NOTE | 2021-01-09 00:13 | PC.NURSE ---
pt urinated on the floor , pt guided to stretcher, pt requires a sitter for fall risk.
[2021-01-09 00:40] LABS: Basophils Absolute Auto 0.1 K/mm3 (0.0-0.1); Basophils Percent Auto 0.4 % (0.2-1.2); Eosinophils Absolute Auto 0.2 K/mm3 (0-0.3); Eosinophils Percent Auto 1.7 % (0-4.4); Hematocrit 41.7 % (42.0-52.0); Immature Granulocyte Absolute 0.06 K/mm3 (0.00-0.031); Immature Granulocyte Percent A 0.5 % (0-0.5); Lymphocytes Absolute Auto 3.45 K/mm3 (0.9-3.2); Lymphocytes Percent Auto 28.8 % (18.3-44.2); Mean Corpuscular HGB Conc 33.6 g/dl (32-36); Mean Corpuscular Hemoglobin 33.5 pg (26-34); Mean Corpuscular Volume 99.8 fl (80-100); Mean Platelet Volume 8.8 fl (7.4-10.4); Monocytes Absolute Auto 0.8 K/mm3 (0.1-0.6); Monocytes Percent Auto 6.8 % (2.6-8.5); Neutrophils Absolute Auto 7.4 K/mm3 (1.3-6.7); Neutrophils Percent Auto 61.8 % (45.5-73.1); Platelet Count Result 332 k/mm3 (150-375); Red Blood Count 4.18 M/mm3 (4.6-6.20); Red Cell Distribution Width 13.1 % (11.5-14.5)
[2021-01-09 00:51] LABS: Acetaminophen < 10 ug/mL (10-30); Ethanol 283 mg/dL (<10); Salicylate < 1.0 mg/dL (2-20)
[2021-01-09 00:52] LABS: Alanine Aminotransferase 86 U/L (4-50); Albumin Level 4.4 g/dL (3.5-5.1); Alkaline Phosphatase 67 U/L (38-126); Anion Gap 12 mmol/L (8-16); Aspartate Amino Transferase 54 U/L (17-59); Bilirubin,Total 0.2 mg/dL (0.2-1.3); Blood Urea Nitrogen 19 mg/dL (9-20); Calcium 8.8 mg/dL (8.4-10.2); Carbon Dioxide 23 mmol/L (22-30); Chloride 112 mmol/L (98-107); Estimated CRCL calculation 109 ml/min; Estimated Glomerular Filt Rate > 60; Glucose 88 mg/dL (75-110); Potassium 3.7 mmol/L (3.4-5.0); Sodium 147 mmol/L (137-145)
[2021-01-09 01:05] LABS: Amphetamine Screen Urine Negative (Negative); Barbiturate Screen Urine Negative (Negative); Benzodiazepines Screen Urine Negative (Negative); Cannabinoid Screen Urine Negative (Negative); Cocaine Screen Urine Negative (Negative); Methadone Screen Urine Negative (Negative); Opiate Screen Urine Negative (Negative); Phencyclidine Screen Urine Negative (Negative)
--- NOTE | 2021-01-09 02:39 | PC.NURSE ---
pt spitting in a bag and on the floor and cussing @ staff.
[2021-01-09 03:42] VITALS: BP 110/68; PULSE 107; RESP 22; O2SAT 98
[2021-01-09 04:41] VITALS: BP 109/71; PULSE 103; RESP 16; O2SAT 97
--- NOTE | 2021-01-09 05:03 | ED.GENADULT ---
HPI - General Adult General Chief complaint: Alcohol Stated complaint: ams Time Seen by Provider: 01/09/21 00:24 History of Present Illness HPI narrative: Patient is a 50-year-old gentleman who presents to emergency department with chief complaint of alcohol intoxication. Patient was recently in the emergency department for both psychiatric reasons and also for intoxication patient was found outside of a bar laying on the ground and was highly intoxicated. Upon arrival to emergency department patient states he has no complaints denies suicidal or homicidal ideation Related Data Home Medications Medication Instructions Recorded Confirmed trazodone 50 mg PO HS 08/03/20 08/04/20 chlorpromazine 50 mg PO TID 08/04/20 08/04/20 benztropine 1 mg PO 01/06/21 buspirone [BuSpar] 5 mg PO BID 01/06/21 01/06/21 duloxetine 30 mg PO BID 01/06/21 01/06/21 famotidine 20 mg PO DAILY 01/06/21 gabapentin 800 mg PO TID 01/06/21 01/06/21 hydroxyzine pamoate 25 mg PO Q4H PRN 01/06/21 Allergies Allergy/AdvReac Type Severity Reaction Status Date / Time latex Allergy Rash Verified 01/06/21 00:50 Penicillins Allergy Hives Verified 01/06/21 00:50 risperidone [From Risperdal] Allergy Other Verified 01/06/21 00:50 tramadol AdvReac Headache Verified 01/06/21 00:50 Review of Systems Review of Systems: Narrative: A 10 system review of systems was completed on the patient and is negative except for what is stated in the HPI. Nursing and ancillary documentation was reviewed. PMFSH Past Medical History Medical History Anxiety Depression Illicit drug use Surgical History Surgical History Hx of appendectomy Hx of tonsillectomy Family History Family History Other Unknown family medical history Social History Social History Smoking packs per day: 1 Smoking cigarettes per day: 20.0 Smoking status: Current every day smoker Tobacco type: cigarettes Alcohol intake: current Substance use: current Substance use type: former substance user Gender identity (if verbalized by the patient): Male Spiritual care concerns: No Exam Narrative: Exam Narrative: GENERAL: Well-appearing, well-nourished, and in no acute distress. HEAD: Normocephalic, atraumatic. EYES: PERRLA and EOMI. ENT: Nares clear, no rhinorrhea or epistaxis. Mucous membranes moist. NECK: Supple. CHEST: Clear to auscultation. No respiratory distress. HEART: Regular rate and rhythm. No murmur heard. Normal peripheral pulses. ABDOMEN: Soft, nontender, nondistended, normal active bowel sounds. EXTREMITIES: Normal range of motion. No edema. SKIN: Warm, dry, no rash. NEURO: No focal deficits. Alert and oriented x3. PSYCH: Normal mood and affect. Course Course Emergency Course: The patient has been observed in the emergency department and currently is showing no signs of acute intoxication. Vital Signs Vital signs: Vital Signs Temperature 37.1 C 01/08/21 23:55 Pulse Rate 110 H 01/08/21 23:55 Respiratory Rate 22 H 01/08/21 23:55 Blood Pressure 105/69 01/08/21 23:55 Pulse Oximetry 100 01/08/21 23:55 Temperature 37.1 C 01/08/21 23:55 Pulse Rate 103 H 01/09/21 04:41 Respiratory Rate 16 01/09/21 04:41 Blood Pressure 109/71 01/09/21 04:41 Pulse Oximetry 97 01/09/21 04:41 Medical Decision Making Vital Signs Vital Signs: Vital Signs Temperature 37.1 C 01/08/21 23:55 Pulse Rate 110 H 01/08/21 23:55 Respiratory Rate 22 H 01/08/21 23:55 Blood Pressure 105/69 01/08/21 23:55 Pulse Oximetry 100 01/08/21 23:55 Temperature 37.1 C 01/08/21 23:55 Pulse Rate 103 H 01/09/21 04:41 Respiratory Rate 16 01/09/21 04:41 Blood Pressure 109/71 01/09/21 04:41 Pulse Oximetry 97 01/09/21 04:41 Lab Data Result diag
--- NOTE | 2021-01-09 05:11 | PC.NURSE ---
pt able to ambulate with a steady gait while using his crutches. pt wishes to be discharged at this time. pt is answering all questions appropriately
== END 2021-01-09 05:29 | disposition home or self-care (01) ==
PROVIDERS: Emergency Provider Emergency Medicine; PCP Nurse Practitioner
DX: F10.129 Alcohol abuse with intoxication, unspecified (principal); F41.9 Anxiety disorder, unspecified; F32.9 Major depressive disorder, single episode, unspecified; F17.210 Nicotine dependence, cigarettes, uncomplicated; Y90.8 Blood alcohol level of 240 mg/100 ml or more
CPT/HCPCS: 36415; 80053; 80307; 85025; 99283; A9270

== ENCOUNTER 2021-01-09 05:33 | Emergency (ER) | payer OTHER, SELFPAY ==
[2021-01-09 05:36] VITALS: BP 160/100; PULSE 128; RESP 18; TEMP 36.1; O2SAT 94
[2021-01-09 06:11] VITALS: BP 109/71; PULSE 103; RESP 20; O2SAT 97
--- NOTE | 2021-01-09 06:20 | ED.GENADULT ---
HPI - General Adult General Chief complaint: Unspecified Stated complaint: i think i checked out too soon, i dont feel good Time Seen by Provider: 01/09/21 06:19 History of Present Illness HPI narrative: Patient 50-year-old gentleman who presents the emergency department with chief complaint of nausea and dizziness. Patient was just seen earlier after alcohol intoxication patient is also been in the hospital in the emergency department for 87 hours and 15 minutes waiting for a psychiatric bed but ultimately was able to be cleared for discharge. Patient states that he has not been taking his gabapentin during that time. Since he was under suicide watch. The patient states that he does not have his gabapentin with him and states that after he got discharged and he realized that it was raining outside that he started feeling nauseated and also felt as though he was dizzy. Related Data Home Medications Medication Instructions Recorded Confirmed trazodone 50 mg PO HS 08/03/20 08/04/20 chlorpromazine 50 mg PO TID 08/04/20 08/04/20 benztropine 1 mg PO 01/06/21 buspirone [BuSpar] 5 mg PO BID 01/06/21 01/06/21 duloxetine 30 mg PO BID 01/06/21 01/06/21 famotidine 20 mg PO DAILY 01/06/21 gabapentin 800 mg PO TID 01/06/21 01/06/21 hydroxyzine pamoate 25 mg PO Q4H PRN 01/06/21 Allergies Allergy/AdvReac Type Severity Reaction Status Date / Time latex Allergy Rash Verified 01/06/21 00:50 Penicillins Allergy Hives Verified 01/06/21 00:50 risperidone [From Risperdal] Allergy Other Verified 01/06/21 00:50 tramadol AdvReac Headache Verified 01/06/21 00:50 Review of Systems Review of Systems: Narrative: A 10 system review of systems was completed on the patient and is negative except for what is stated in the HPI. Nursing and ancillary documentation was reviewed. PMFSH Past Medical History Medical History Anxiety Depression Illicit drug use Surgical History Surgical History Hx of appendectomy Hx of tonsillectomy Family History Family History Other Unknown family medical history Social History Social History Smoking packs per day: 1 Smoking cigarettes per day: 20.0 Smoking status: Current every day smoker Tobacco type: cigarettes Alcohol intake: current Substance use: current Substance use type: former substance user Gender identity (if verbalized by the patient): Male Spiritual care concerns: No Exam Narrative: Exam Narrative: GENERAL: Well-appearing, well-nourished, and in no acute distress. HEAD: Normocephalic, atraumatic. EYES: PERRLA and EOMI. ENT: Nares clear, no rhinorrhea or epistaxis. Mucous membranes moist. NECK: Supple. CHEST: Clear to auscultation. No respiratory distress. HEART: Regular rate and rhythm. No murmur heard. Normal peripheral pulses. ABDOMEN: Soft, nontender, nondistended, normal active bowel sounds. EXTREMITIES: Normal range of motion. No edema. SKIN: Warm, dry, no rash. NEURO: No focal deficits. Alert and oriented x3. PSYCH: Normal mood and affect. Course Vital Signs Vital signs: Vital Signs Temperature 36.1 C L 01/09/21 05:36 Pulse Rate 128 H 01/09/21 05:36 Respiratory Rate 18 01/09/21 05:36 Blood Pressure 160/100 H 01/09/21 05:36 Pulse Oximetry 94 01/09/21 05:36 Temperature 36.1 C L 01/09/21 05:36 Pulse Rate 103 H 01/09/21 06:11 Respiratory Rate 20 01/09/21 06:11 Blood Pressure 109/71 01/09/21 06:11 Pulse Oximetry 97 01/09/21 06:11 Medical Decision Making Vital Signs Vital Signs: Vital Signs Temperature 36.1 C L 01/09/21 05:36 Pulse Rate 128 H 01/09/21 05:36 Respiratory Rate 18 01/09/21 05:36 Blood Pressure 160/100 H 01/09/21 05:36 Pulse Oximetry 94 01/09/21 05:36 Temperature 36.1 C L 01/09/21 05:36 P
[2021-01-09] MEDS: GABAPENTIN 400 MG CAPSULE 800 MG PO (06:31)
== END 2021-01-09 07:06 | disposition home or self-care (01) ==
PROVIDERS: Emergency Provider Emergency Medicine; PCP Nurse Practitioner
DX: R42 Dizziness and giddiness (principal); R11.0 Nausea; F10.10 Alcohol abuse, uncomplicated; F41.9 Anxiety disorder, unspecified; F32.9 Major depressive disorder, single episode, unspecified; F17.210 Nicotine dependence, cigarettes, uncomplicated
CPT/HCPCS: 36415; 80053; 80307; 85025; 99283; A9270

== ENCOUNTER 2021-07-14 13:31 | Emergency (ER) | payer OTHER, SELFPAY ==
[2021-07-14] VITALS (7 sets, daily range): BP systolic 112–126; BP diastolic 73–75; PULSE 87–93; RESP 16–19; TEMP 36.5; O2SAT 93–97
--- NOTE | ~2021-07-14 | CT_ITS ---
EXAMINATION: CT cervical spine wo con EXAM DATE: 07/14/2021 14:31 INDICATION: Facial laceration, head injury. TECHNIQUE: Spiral CT of the cervical spine was performed without contrast. Axial images were reviewe d. Coronal and sagittal reformatted images cervical spine were also reviewed. The dose-length produc t (DLP) for this examination was 570.01 mGy-cm. The exposure was tailored according to patient size (auto mA exposure control), and iterative reconstruction (ASIR) was used as additional dose reduction technique. There is no prior study for comparison. FINDINGS: Lung apices are clear. There is moderate disc disease at C5-6 and 6-7, overall mild to mode rate arthropathy. There is no evidence of acute cervical fracture. The odontoid process is intact. Pre-dens space is normal. Prevertebral soft tissue is normal. There are no soft tissue abnormalitie s identified. There is no disc space widening or traumatic vertebral body subluxation suspected. Ve rtebral body and disc heights are well-maintained. A detailed level by level evaluation of spondylo sis can be added as addendum if requested. IMPRESSION: 1. No acute cervical fracture. 2. Cervical spondylosis. Reviewed, dictated and finalized at location B.
--- NOTE | ~2021-07-14 | CT_ITS ---
EXAMINATION: CT brain wo con DATE: 07/14/2021 14:31 INDICATION: Altered mental status. TECHNIQUE: Computed tomography (CT) of the head was performed without intravenous contrast. The mA wa s adjusted according to patient size. Iterative reconstruction technique was employed. The dose-lengt h product was 605.33 mGy-cm. COMPARISON: None FINDINGS: There is no intracranial hemorrhage, acute infarction, or abnormal intracranial mass lesion . The ventricles are normal in size. There is an old blowout fracture of floor of right orbit. The ma stoid air cells are normal. IMPRESSION: 1. Normal brain. Reviewed, dictated and finalized at location A. IMPRESSION: 1. Normal brain.
--- NOTE | 2021-07-14 14:14 | ECG_ITS ---
Measurements Intervals [place] Rate: 90 P: 49 VA: 136 QRS: 48 QRSD: 94 T: 49 QT: 353 QTc: 433 Interpretive Statements SINUS RHYTHM BASELINE ARTIFACT- I, II, AVR NORMAL ECG Electronically Signed On 07-15-2021 10:22:30 CDT by Yung Carranza D.O.
[2021-07-14 15:08] LABS: Basophils Percent Auto 0.5 % (0.2-1.2); Eosinophils Absolute Auto 0.2 K/mm3 (0-0.3); Eosinophils Percent Auto 1.9 % (0-4.4); Hematocrit 42.9 % (42.0-52.0); Hemoglobin 14.1 g/dL (14.0-18.0); Immature Granulocyte Absolute 0.03 K/mm3 (0.00-0.031); Immature Granulocyte Percent A 0.4 % (0-0.5); Lymphocytes Absolute Auto 2.57 K/mm3 (0.9-3.2); Lymphocytes Percent Auto 31.3 % (18.3-44.2); Mean Corpuscular HGB Conc 32.9 g/dl (32-36); Mean Corpuscular Hemoglobin 34.1 pg (26-34); Mean Corpuscular Volume 103.9 fl (80-100); Monocytes Absolute Auto 0.6 K/mm3 (0.1-0.6); Monocytes Percent Auto 6.8 % (2.6-8.5); Neutrophils Absolute Auto 4.9 K/mm3 (1.3-6.7); Neutrophils Percent Auto 59.1 % (45.5-73.1); Platelet Count Result 321 k/mm3 (150-375); Red Blood Count 4.13 M/mm3 (4.6-6.20); Red Cell Distribution Width 14.9 % (11.5-14.5); White Blood Count 8.2 K/mm3 (4.5-10.0)
[2021-07-14] MEDS: FOLIC ACID IV CONT (15:08)
[2021-07-14] MEDS: [UNRECOGNIZED DRUG - OTHER] IV CONT (15:08)
[2021-07-14] MEDS: THIAMINE HCL IV CONT (15:08)
[2021-07-14] MEDS: MULTIVITAMINS IV CONT (15:08)
[2021-07-14 15:41] LABS: Alanine Aminotransferase 45 U/L (4-50); Albumin Level 4.3 g/dL (3.5-5.1); Alkaline Phosphatase 57 U/L (38-126); Anion Gap 10 mmol/L (8-16); Aspartate Amino Transferase 57 U/L (17-59); Bilirubin,Total 0.2 mg/dL (0.2-1.3); Blood Urea Nitrogen 11 mg/dL (9-20); Calcium 8.5 mg/dL (8.4-10.2); Carbon Dioxide 28 mmol/L (22-30); Chloride 110 mmol/L (98-107); Estimated CRCL calculation 164 ml/min; Estimated Glomerular Filt Rate > 60; Glucose 101 mg/dL (65-110); Potassium 3.5 mmol/L (3.4-5.0); Sodium 148 mmol/L (137-145)
[2021-07-14 15:52] LABS: Ethanol 357 mg/dL (<10)
[2021-07-14 15:53] LABS: Troponin I < 0.012 ng/mL (0.000-0.034)
--- NOTE | 2021-07-14 20:01 | ED.AMS ---
HPI - Altered Mental Status General Chief Complaint: Altered Mental Status Stated Complaint: AMS Time Seen by Provider: 07/14/21 14:00 Source: EMS Mode of arrival: EMS Limitations: clinical condition History of Present Illness HPI narrative: Patient is a 50-year-old male brought in by EMS after being found face down on the sidewalk of a gas station. Patient admits to drinking a pint of liquor today. Patient is intoxicated and a poor historian. Patient calling the nurse baby and laughing when he was being examined. Related Data Home Medications Medication Instructions Recorded Confirmed trazodone 50 mg PO HS 08/03/20 08/04/20 chlorpromazine 50 mg PO TID 08/04/20 08/04/20 benztropine 1 mg PO 01/06/21 buspirone [BuSpar] 5 mg PO BID 01/06/21 01/06/21 duloxetine 30 mg PO BID 01/06/21 01/06/21 famotidine 20 mg PO DAILY 01/06/21 gabapentin 800 mg PO TID 01/06/21 01/06/21 hydroxyzine pamoate 25 mg PO Q4H PRN 01/06/21 Allergies Allergy/AdvReac Type Severity Reaction Status Date / Time latex Allergy Rash Verified 01/06/21 00:50 Penicillins Allergy Hives Verified 01/06/21 00:50 risperidone [From Risperdal] Allergy Other Verified 01/06/21 00:50 tramadol AdvReac Headache Verified 01/06/21 00:50 Review of Systems Review of Systems: All systems reviewed & are unremarkable except as noted in HPI and below ROS unobtainable: Yes unobtainable due to mental status (Intoxicated) [facility] Past Medical History Medical History Anxiety Depression Illicit drug use Surgical History Surgical History Hx of appendectomy Hx of tonsillectomy Family History Family History Other Unknown family medical history Social History Social History Smoking packs per day: 1 Smoking cigarettes per day: 20.0 Smoking status: Current every day smoker Tobacco type: cigarettes Alcohol intake: current Alcohol use details: 09/22 vodka daily Substance use: current Substance use type: former substance user Gender identity (if verbalized by the patient): Male Spiritual care concerns: No Exam Const: Nutritional Appearance: obese Other: Mild distress, unkempt HENMT: Ears: external ears normal General nose exam: Normal nares present, no nasal discharge noted and no epistaxis Mouth: Yes moist mucous membranes Other: Abrasion left side of his face Eyes: Conjunctivae: conjunctivae normal Pupils: Equal, round and reactive pupils present Neck: Neck: normal visual inspection Chest: Chest palpation & inspection: normal inspection of the chest Resp: Effort & Inspection: normal respiratory effort, not labored, no retractions, not tachypneic and no use of accessory muscles Auscultation: clear to auscultation bilaterally Cardio: Rate: regular rate Rhythm: regular rhythm GI: GI Palp: Yes Soft to palpation, No Tenderness to palpation present (GI), No Guarding due to palpation present (GI) and No Rigid due to palpation Skin: General skin exam: normal color Neuro: General: moves all extremities Other: Unable to do a complete neuro exam, patient is intoxicated and uncooperative Extrem: General: normal to inspection Course Course Emergency Course: Patient reexamined at 8 PM patient is now alert awake and admits to drinking all day today. Vital Signs Vital signs: Vital Signs Temperature 36.5 C 07/14/21 13:29 Pulse Rate 93 07/14/21 13:29 Respiratory Rate 18 07/14/21 13:29 Blood Pressure 112/75 07/14/21 13:29 Pulse Oximetry 95 07/14/21 13:29 Temperature 36.5 C 07/14/21 13:29 Pulse Rate 92 07/14/21 19:35 Respiratory Rate 18 07/14/21 19:35 Blood Pressure 126/73 07/14/21 19:35 Pulse Oximetry 96 07/14/21 19:35 MDM - Altered Mental Status Lab Data Result diagrams: 07/14/21 14:54 07/14/21 14:54
--- NOTE | 2021-07-14 22:26 | PC.NURSE ---
pt out of ed on crutches and stand by assist. pt refusing to wear mask over nose. pt asked to wear mask properly, pt stating I can't breathe. I'm going to beat your ass . pt to wait for [employer] set up by [facility] [employer] via phone.
== END 2021-07-14 22:26 | disposition home or self-care (01) ==
PROVIDERS: Emergency Provider Emergency Medicine; PCP Nurse Practitioner
DX: F10.129 Alcohol abuse with intoxication, unspecified (principal); Y90.8 Blood alcohol level of 240 mg/100 ml or more; S00.83XA Contusion of other part of head, initial encounter; S00.03XA Contusion of scalp, initial encounter; S10.93XA Contusion of unspecified part of neck, initial encounter; F17.210 Nicotine dependence, cigarettes, uncomplicated; F41.9 Anxiety disorder, unspecified; F32.9 Major depressive disorder, single episode, unspecified; X58.XXXA Exposure to other specified factors, initial encounter
CPT/HCPCS: 36415; 70450; 72125; 80053; 80307; 84484; 85025; 93005; 96374; 99284; J3411; J3475; J7121